=== PATIENT | female | born 1975 | race American Indian/Alaskan Native ===

== ENCOUNTER → 2025-01-30 | Outpatient (CLI) | payer BC, SELFPAY ==
[2025-01-30 09:42] LABS: Glucose Estimated Average 200 mg/dL (80-131); Hemoglobin A1C 8.6 % Hgb (4.8-6.0)
[2025-01-30 10:08] LABS: Alanine Aminotransferase 39 U/L (10-49); Albumin/Globulin Ratio 1.4 (1.2-2.2); Alkaline Phosphatase 107 U/L (46-116); Anion Gap 8 (7-16); Aspartate Amino Transferase 21 U/L (0-34); BUN/Creatinine Ratio 11 Ratio (12-20); Bilirubin,Total 0.7 mg/dL (0.3-1.2); Blood Urea Nitrogen 10 mg/dL (9-23); Calcium 9.7 mg/dL (8.3-10.6); Calcium (Corrected) 9.7 mg/dL (8.5-10.1); Carbon Dioxide 28.1 mMol/L (20.0-31.0); Chloride 104 mMol/L (98-107); Creatinine (Component) 0.9 mg/dL (0.6-1.3); Globulin 2.9 gm/dL (2.3-3.5); Glucose 191 mg/dL (74-106); Osmolality,Calculated 283 (275-295); Potassium 4.9 mMol/L (3.4-5.1); Sodium 140 mMol/L (136-145); Total Protein 6.9 gm/dL (5.7-8.2); eGFR > 60 See Note
== END | disposition home or self-care (01) ==
LOC: COPL 08:15
PROVIDERS: PCP Family Medicine; Referring Provider Physician Assistant; Visit Provider Physician Assistant
DX: E11.9 Type 2 diabetes mellitus without complications (principal)
CPT/HCPCS: 36415; 80053; 83036

== ENCOUNTER → 2025-04-22 | Outpatient (CLI) | payer BC, SELFPAY ==
--- NOTE | 2025-04-22 13:19 | XR_ITS ---
Examination: Foot bilateral, 6 views Technique: AP, oblique, lateral views each foot total 6 views Date and time of exam: April 22, 2025 1331 hours INDICATIONS: Bilateral foot pain beginning 6 months ago with heel pain FINDINGS: Moderate osteopenia Bilateral mild narrowing first metatarsophalangeal joints Bilateral 4 mm posterior bony calcaneal spurs No fractures No cortical bone destruction IMPRESSION: Bilateral 4 mm posterior bony calcaneal spurs Bilateral mild narrowing first metatarsophalangeal joints
[2025-04-22 14:18] LABS: Basophils # (Auto) 0.1 Thou/mm3 (0.0-0.2); Basophils % (Auto) 1 % (0-2.5); Eosinophils # (Auto) 0.5 Thou/mm3 (0.0-0.5); Eosinophils % (Auto) 6 % (0-10); Hematocrit 46.3 % (36.0-46.0); Hemoglobin 15.8 g/dL (12.0-16.0); Immature Granulocytes % (Auto) 0 % (0-0); Immature Granulocytes Auto 0.02 Thou/mm3 (0.00-0.00); Lymphocytes % (Auto) 35 % (10-50); Mean Corpuscular HGB Conc 34.1 g/dl (31.0-37.0); Mean Corpuscular Hemoglobin 31.7 pg (25.0-35.0); Mean Corpuscular Volume 93 fL (80-100); Monocytes # (Auto) 0.6 Thou/mm3 (0.0-0.8); Monocytes % (Auto) 7 % (0-12); Neutrophils # (Auto) 4.4 Thou/mm3 (1.8-7.7); Neutrophils % (Auto) 51 % (37-80); Nucleated Red Blood Cell % 0 /100 WBC (0); Platelet Count 387 Thou/mm3 (140-440); RDW Standard Deviation 42.3 fL (36.4-46.3); Red Blood Count 4.99 Miln/mm3 (4.00-5.20); White Blood Count 8.6 Thou/mm3 (3.6-11.0)
[2025-04-22 14:42] LABS: Vitamin B12 835 pg/mL (211-911); Vitamin D 25 Hydroxy Total 60.2 ng/mL (7.3-40.2)
[2025-04-22 14:44] LABS: Alanine Aminotransferase 49 U/L (10-49); Albumin, Serum 4.4 gm/dL (3.5-5.0); Albumin/Globulin Ratio 1.5 (1.2-2.2); Alkaline Phosphatase 100 U/L (46-116); Anion Gap 13 (7-16); Aspartate Amino Transferase 34 U/L (0-34); BUN/Creatinine Ratio 8 Ratio (12-20); Blood Urea Nitrogen 7 mg/dL (9-23); Calcium 9.2 mg/dL (8.3-10.6); Calcium (Corrected) 9.2 mg/dL (8.5-10.1); Carbon Dioxide 26.5 mMol/L (20.0-31.0); Cardiac Risk Estimate 2.9 RATIO (3.7-5.6); Chloride 106 mMol/L (98-107); Cholesterol 112 mg/dL (132-200); Creatinine (Component) 0.9 mg/dL (0.6-1.3); Globulin 2.9 gm/dL (2.3-3.5); Glucose 113 mg/dL (74-106); HDL Cholesterol 38 mg/dL (40-60); LDL Cholesterol,Calculated 53 mg/dL (0-130); Osmolality,Calculated 287 (275-295); Sodium 145 mMol/L (136-145); Thyroid Stimulating Hormone 0.73 uIU/mL (0.55-4.78); Total Protein 7.3 gm/dL (5.7-8.2); Triglycerides 105 mg/dL (30-150); eGFR > 60 See Note
[2025-04-22 14:45] LABS: Glucose Estimated Average 146 mg/dL (80-131); Hemoglobin A1C 6.7 % Hgb (4.8-6.0)
[2025-04-22 14:51] LABS: Collection Type, Urine Clean Catch
[2025-04-22 15:14] LABS: Bacteria,Urine Rare; Bilirubin,Urine Negative (Negative); Blood,Urine Negative (Negative); Clarity,Urine Clear (Clear/Hazy); Color,Urine Yellow (Lt Yel-Yel); Culture Indicated,Urine Not Indicated; Glucose, Urine Negative (Negative); Ketones,Urine Negative (Negative); Leukocyte Esterase,Urine Positive (Negative); Nitrite,Urine Negative (Negative); Protein,Urine Negative (Neg - Trace); RBC,Urine 3 /hpf (0-3); Specific Gravity,Urine 1.018 (1.001-1.035); Squamous Epithelial Cell,Urine 2 /hpf (0-5); Urobilinogen,Urine Negative mg/dL (0.0-1.0); WBC,Urine 10 /hpf (0-5)
[2025-04-22 15:26] LABS: Creatinine MALB Rnd Ur 164 mg/dL (30-125); Microalbumin Creat Ratio 5 mg/gCrea (<30); Microalbumin, Random Urine 8 mg/L (0-300)
== END | disposition home or self-care (01) ==
LOC: COPL 13:12
PROVIDERS: PCP Family Medicine; Referring Provider Physician Assistant; Visit Provider Physician Assistant
DX: Z00.00 Encounter for general adult medical examination without abnormal findings (principal); E11.65 Type 2 diabetes mellitus with hyperglycemia; E55.9 Vitamin D deficiency, unspecified; M79.673 Pain in unspecified foot
CPT/HCPCS: 36415; 73630; 80053; 80061; 81001; 82043; 82306; 82570; 82607; 83036; 84443; 85025

== ENCOUNTER → 2025-05-12 | Outpatient (CLI) | payer BC, SELFPAY ==
--- NOTE | 2025-05-12 | XR_ITS ---
Examination: Lumbar spine, 5 views Technique: Lumbar spine AP, lateral, coned lateral lower lumbar spine, bilateral obliques 5 views Exam date and time: May 12, 2025 1156 hours INDICATIONS: Back pain 7 years. FINDINGS: Lumbar dextroscoliosis 10 degrees Mild diffuse facet arthropathy. No lumbar fracture Moderate disc narrowing L4-L5, L5-S1 Calcified disc bulge L4-L5 8 mm No spondylolisthesis IMPRESSION: Moderate degenerative disc disease L4-L5, L5-S1 L4-L5 8 mm calcified bulging disc
--- NOTE | 2025-05-12 11:30 | XR_ITS ---
Examination: Screening digital mammography, bilateral Computer aided detection 3-D breast Tomosynthesis, bilateral Date and time of exam: May 12, 2025 1143 hours Compared to mammograms dating to July 18, 2011 Indication: Screening Technique: Nonmagnified MLO, CC views of the breasts to been obtained, reconstructed from 3-D Tomosynthesis images. R2 computer aided detection program utilized for evaluation of suspicious masses and/or abnormal calcifications. 3-D Tomosynthesis images obtained. Findings: Scattered areas of fibroglandular density. 4 mm focal asymmetry outer left breast 7.8 cm from the nipple Impression: BI-RADS Category 0: Incomplete: Need additional imaging evaluation 4 mm focal asymmetry outer left breast 7.8 cm from the nipple, recommend follow-up spot tomographic views upper outer quadrant left breast left breast sonography to complete the workup.
== END | disposition home or self-care (01) ==
LOC: CDIM 11:27
PROVIDERS: Referring Provider Physician Assistant; Visit Provider Physician Assistant
DX: Z12.31 Encounter for screening mammogram for malignant neoplasm of breast (principal); M51.360 Other intervertebral disc degeneration, lumbar region with discogenic back pain only; R92.323 Mammographic fibroglandular density, bilateral breasts; N64.89 Other specified disorders of breast
CPT/HCPCS: 72110; 77063; 77067

== ENCOUNTER 2025-07-16 17:28 | Emergency (ER) | payer BC, SELFPAY ==
[2025-07-16 17:42] VITALS: BP 131/72; PULSE 83; RESP 18; TEMP 36.7; O2SAT 98; BMI 30.3
--- NOTE | 2025-07-16 17:50 | XR_ITS ---
Examination: Foot, left, 3 views Technique: AP, oblique, lateral views foot, 3 views Date and time of exam: July 08 06/25/2025, 1758 hours INDICATIONS: Injury to the foot today with fourth digit pain. FINDINGS: Spiral fracture involving proximal and midportion proximal phalanx fourth digit without significant displacement No foreign body IMPRESSION: Acute fracture proximal phalanx fourth digit
--- NOTE | 2025-07-16 17:51 | XR_ITS ---
Examination: Toes, left foot fourth digit 3 views Technique: Toes AP oblique lateral 3 views fourth digit Date and time of exam: July 16, 2025, 1758 hours INDICATIONS: Injury to the foot today with fourth digit pain. FINDINGS: Oblique fracture involving the mid and proximal portion proximal phalanx fourth digit No major offset at the fracture site IMPRESSION: Acute fracture proximal phalanx fourth digit
--- NOTE | 2025-07-16 17:51 | PD.EDANKLE ---
Lower Extremity Injury RME/HPI General Chief Complaint: Ankle/Foot Injury Stated Complaint: Left 4th toe injury today Time Seen by Provider: 07/16/25 17:45 Arrival date/time: 07/16/25 17:28 RME / HPI RME / HPI Narrative: 50-year-old female patient came in for evaluation regarding left fourth toe injury. Patient accidentally kicked her daughter's shoe resulting into a deformity to the left fourth toe with pain and swelling incident happened few minutes prior to ER visit. Patient took 1600 mg of ibuprofen prior to ER visit. Denies any other injury patient is ambulatory. Related Data Home Medications ?Medication ?Instructions ?Recorded ?Confirmed apixaban 2.5 mg tablet (Eliquis) 2.5 mg PO BID 05/28/23 08/13/23 cholecalciferol (vitamin D3) 25 25 mcg PO QDAY 05/28/23 08/13/23 mcg (1,000 unit) tablet (Vitamin D3) famotidine 20 mg tablet (Pepcid) 20 mg PO BID 05/28/23 08/13/23 omeprazole 20 mg capsule,delayed 20 mg PO DAILY 05/28/23 08/13/23 release escitalopram oxalate 20 mg tablet 20 mg PO DAILY 08/09/23 08/13/23 ferrous sulfate 325 mg (65 mg 325 mg PO DAILY 08/09/23 08/13/23 iron) tablet lisinopril 2.5 mg tablet 2.5 mg PO DAILY 08/09/23 08/13/23 metformin 500 mg tablet 1,000 mg PO BID 08/09/23 08/13/23 Previous Rx's ?Medication ?Instructions ?Recorded flecainide 100 mg tablet 100 mg PO Q12H #14 tabs 01/12/24 metoprolol succinate 50 mg 50 mg PO QDAY #7 tabs 01/12/24 tablet,extended release 24 hr Allergies Allergy/AdvReac Type Severity Reaction Status Date / Time latex Allergy Severe ITCHY, Verified 07/16/25 17:33 REDDENED Review of Systems Review of Systems Narrative Review of Systems: Review of system reviewed and within normal limits except mentioned in HPI ED Exam Narrative Physical exam: VITAL SIGNS: Reviewed. GENERAL APPEARANCE: Alert and interactive, follows commands, no acute distress, HEAD AND FACE: Non-traumatic. ENT: PERRL, pink conjunctivitis, eyelid no trauma, Mucous membrane moist. NECK: Supple, nontender, no nuchal rigidity. CHEST: No tenderness, no crepitus, no paradoxical movement, no retractions. LUNGS: Clear, well ventilated, symmetric, no rales, no wheezing, no ronchi, no stridor, good breath sounds bilaterally. HEART: Regular rate, regular rhythm, no murmur, no gallops. ABDOMEN: Soft, positive bowel sounds, nondistended, no guarding, nontender, no rebound, no masses, RECTAL: Deferred. GENITAL: Deferred. NEUROLOGICAL: Gross motor function intact sensory function intact, Appropriate for age. MUSCULOSKELETAL: low back nontender, full range of motion. EXTREMITIES: + Left fourth toe swelling, tenderness, with limitation range of motion. SKIN: Color pink, dry, no rash, no lacerations, no abrasions, no contusions. LYMPHATICS: Deferred. Course Quality Measures none Orders Category Date Time Status XR foot comp LT min 3V Stat Exams 07/16/25 17:50 Completed XR toe LT min 2V Stat Exams 07/16/25 17:51 Completed Vital Signs Vital signs: Vital Signs Temperature 98.1 F 07/16/25 17:42 Pulse Rate 83 07/16/25 17:42 Respiratory Rate 18 07/16/25 17:42 Blood Pressure 131/72 H 07/16/25 17:42 Pulse Oximetry (%) 98 07/16/25 17:42 Oxygen Delivery Method Room Air 07/16/25 17:42 Extremity Injury, Lower MDM Narrative MDM Narrative:: 50-year-old female patient came in for evaluation regarding left fourth toe injury. Patient accidentally kicked her daughter's shoe resulting into a deformity to the left fourth toe with pain and swelling incident happened few minutes prior to ER visit. Patient took 1600 mg of ibuprofen prior to ER visit. Denies any other injury patient is ambulatory. X-ray of the foot showed proximal phalanx fracture of the fourth 2 on the left. Deena taping applied, patient was supplied with Ortho shoe. She is stable for discharge home. Patient data External records reviewed:: None Clinical information provided by:: patient Social determinants that could affect healthcare access:: none Patient has the following chronic illnesses:: None How is presenting disease/condition affected by chronic disease/condition?: no chronic disease Evaluation data The following diagnostics were reviewed and interpreted by me:: radiology exam(s) Lab and/or radiology exams considered but not ordered:: None Interpretation Summary: See results MDM Medications / Prescriptions Medications or Prescriptions considered but not ordered:: None Medication administrations:: None Consultations Consultation(s) initiated? (list below): No Diagnosis Extremity Injury, Lower Differential Diagnosis: ankle sprain and strain and fracture of toe Most likely diagnosis given after review of the tests above:: Fracture toe Admission Indicated Admission indicated?: not indicated Admission Request Was there a request for admission?: No Disposition Plan Disposition Plan: Discharge Discharge Attestation Discharge Attestation: The patient was given an opportunity to ask questions and understood the discharge instructions. Discharge instructions specifically effects, indications for sooner follow up or return to the emergency department, and the expected course of current diagnosis. Patient condition: Stable Discharge Plan Plan Patient Disposition: HOME (Self Care) Discharge Disposition comment: stable Prescriptions/Referrals Prescriptions/Med Rec: No Action famotidine [Pepcid] 20 mg Tablet 20 mg PO BID omeprazole 20 mg Capsule,Delayed Release(Dr/Ec) 20 mg PO DAILY cholecalciferol (vitamin D3) [Vitamin D3] 25 mcg (1,000 unit) Tablet 25 mcg PO QDAY Eliquis 2.5 mg tablet 2.5 mg PO BID Patient Comments: TAKE 1 TABLET BY MOUTH TWICE DAILY flecainide 100 mg tablet 100 mg PO Q12H Qty: 14 0RF metoprolol succinate 50 mg tablet extended release 24 hr 50 mg PO QDAY Qty: 7 0RF lisinopril 2.5 mg tablet 2.5 mg PO DAILY Patient Comments: TAKE 1 TABLET BY MOUTH EVERY DAY escitalopram oxalate 20 mg tablet 20 mg PO DAILY metformin 500 mg tablet 1,000 mg PO BID ferrous sulfate 325 mg (65 mg iron) tablet 325 mg PO DAILY Referrals: Alex Garcia MD [Primary Care Provider] - In 1 week Problem List Clinical Impression: Closed fracture of toe Patient/Caregiver Discharge Instructions Discharge Activity: activity as tolerated Education Materials: Fx Finger Toe Additional Instructions: Thank you for the opportunity for serving you today. You are stable for discharged . You are advised to: Follow-up with your PCP in 1 to 2 days and asked for referral to [facility] Return to ED for worsening of symptoms Increase oral fluids Take [id number] Tylenol Motrin as needed for pain Continue deena taping for the next 4 weeks and continue using your Ortho shoe Print Language: German Stand Alone Forms: Rajani Award Info., Patient Portal Info Letter PA/FURNACE COMBINATION ANALYST Supervising Physician PA/FURNACE COMBINATION ANALYST Supervising Physician: MD Fidelina
== END 2025-07-16 21:01 | disposition home or self-care (01) ==
PROVIDERS: Emergency Provider Emergency Medicine; PCP Family Medicine
DX: S92.512A Displaced fracture of proximal phalanx of left lesser toe(s), initial encounter for closed fracture (principal); W22.8XXA Striking against or struck by other objects, initial encounter
CPT/HCPCS: 73630; 73660; 99283

== ENCOUNTER → 2025-07-30 | Outpatient (CLI) | payer BC, SELFPAY ==
--- NOTE | 2025-07-30 10:30 | XR_ITS ---
Examination: MRI lumbar spine without contrast Date and time of exam: July 30, 2025 1111 hours INDICATIONS: Lower back pain beginning 29 years ago, worse the last 3 years Technique: Multiple MRI axial and sagittal sections lumbar spine. Sagittal T2-weighted images, TR 3500, TE 118 T1 weighted transverse sections, TR 688 T8.5, T2-weighted sagittal sections T1 weighted sagittal sections TR 621, TE 30 T2 axial sections, TR 4, 190, TE 84. Findings: Transitional S1 vertebral body No lumbar fracture Disc desiccation of the lower 3 lumbar levels Adequate marrow signal lumbar vertebral bodies No spondylolisthesis L5-S1 3 mm central lumbar disc bulge L4 L5 6 mm right paracentral disc bulge displacing the right L5 nerve root L3-L4 4 mm right paracentral disc bulge More cephalad levels unremarkable IMPRESSION: L5-S1 3 mm central lumbar disc bulge L4-L5 6 mm right paracentral disc bulge displacing the right L5 nerve root L3-L4 4 mm right upper central disc bulge
== END | disposition home or self-care (01) ==
PROVIDERS: PCP Physician Assistant; Referring Provider Physician Assistant; Visit Provider Physician Assistant
DX: M51.370 Other intervertebral disc degeneration, lumbosacral region with discogenic back pain only (principal); M51.360 Other intervertebral disc degeneration, lumbar region with discogenic back pain only
CPT/HCPCS: 72148

== ENCOUNTER → 2025-08-19 | Outpatient (CLI) | payer BC, SELFPAY ==
--- NOTE | 2025-08-19 | XR_ITS ---
Examination: Foot, left, 3 views Technique: AP, oblique, lateral views foot, 3 views Date and time of exam: August 19, 2025, 0719 hrs., Comparison July 16, 2025 Indications: Injury to the foot with acute fracture proximal phalanx fourth digit July 16, 2025 Findings: Stable alignment fracture proximal phalanx fourth digit No significant bony callus formation Impression: Stable alignment fracture proximal phalanx fourth digit
[2025-08-19 08:47] LABS: Glucose Estimated Average 128 mg/dL (80-131); Hemoglobin A1C 6.1 % Hgb (4.8-6.0)
[2025-08-19 08:56] LABS: Alanine Aminotransferase 34 U/L (10-49); Albumin, Serum 4.4 gm/dL (3.5-5.0); Albumin/Globulin Ratio 1.6 (1.2-2.2); Alkaline Phosphatase 89 U/L (46-116); Anion Gap 8 (7-16); Aspartate Amino Transferase 22 U/L (0-34); BUN/Creatinine Ratio 10 Ratio (12-20); Bilirubin,Total 1.0 mg/dL (0.3-1.2); Blood Urea Nitrogen 11 mg/dL (9-23); Calcium 10.4 mg/dL (8.3-10.6); Calcium (Corrected) 10.4 mg/dL (8.5-10.1); Carbon Dioxide 28.7 mMol/L (20.0-31.0); Chloride 108 mMol/L (98-107); Creatinine (Component) 1.1 mg/dL (0.6-1.3); Free T4 (Free Thyroxine) 1.38 ng/dL (0.89-1.76); Globulin 2.7 gm/dL (2.3-3.5); Glucose 108 mg/dL (74-106); Osmolality,Calculated 289 (275-295); Potassium 4.4 mMol/L (3.4-5.1); Sodium 145 mMol/L (136-145); Thyroid Stimulating Hormone 1.25 uIU/mL (0.55-4.78); Total Protein 7.1 gm/dL (5.7-8.2); eGFR > 60 See Note
[2025-08-24 07:18] LABS: T3,Total* 127 ng/dL (76-181)
== END | disposition home or self-care (01) ==
LOC: CDIM 06:52
PROVIDERS: PCP Family Medicine; Referring Provider Physician Assistant; Visit Provider Podiatrist Foot & Ankle Surgery
DX: S92.512A Displaced fracture of proximal phalanx of left lesser toe(s), initial encounter for closed fracture (principal); X58.XXXA Exposure to other specified factors, initial encounter; E11.9 Type 2 diabetes mellitus without complications; R53.83 Other fatigue
CPT/HCPCS: 36415; 73630; 80053; 83036; 84439; 84443; 84480

== ENCOUNTER → 2025-08-26 | Outpatient (CLI) | payer BC, SELFPAY ==
--- NOTE | 2025-08-26 09:00 | XR_ITS ---
Examination: Breast ultrasound, unilateral, left complete Date and time of exam: August 26, 2025, 0914 hours INDICATIONS: Left breast lumpectomy 22 years ago, mammogram 01/12/2025 4 mm focal asymmetry outer left breast 7.8 cm from the nipple Technique: Real-time abbasi scale ultrasonographic imaging performed left breast including all 4 quadrants as well as nipple retroareolar and axillary region. Findings: No cystic or solid mass IMPRESSION: BI-RADS Category 1: Negative study
--- NOTE | 2025-08-26 09:30 | XR_ITS ---
Examination: Diagnostic digital mammography, unilateral, left Computer aided detection 3-D breast Tomosynthesis, unilateral Date and time of exam: August 26, 2025, 0923 hours INDICATIONS: Mammogram May 12, 2025 4 mm focal asymmetry outer left breast 7.8 cm from the nipple Technique: Nonmagnified MLO, CC views of the left breast have been obtained, reconstructed from 3-D Tomosynthesis images. R2 computer aided detection program utilized for evaluation of suspicious masses and/or abnormal calcifications. 3-D Tomosynthesis images obtained. Findings: Scattered areas of fibroglandular density. No suspicious masses noted on the spot compression views Impression: BI-RADS category 2: Benign findings Return to yearly follow-up mammography
== END | disposition home or self-care (01) ==
PROVIDERS: PCP Physician Assistant; Referring Provider Physician Assistant; Visit Provider Physician Assistant
DX: R92.322 Mammographic fibroglandular density, left breast (principal)
CPT/HCPCS: 76641; 77061; 77065; G0279

== ENCOUNTER → 2025-09-28 | Outpatient (CLI) | payer BC, SELFPAY ==
--- NOTE | 2025-09-28 | XR_ITS ---
Examination: Foot, left, 3 views Technique: AP, oblique, lateral views foot, 3 views Date and time of exam: September 28, 2025, 11:25 a.m. INDICATIONS: Fracture proximal phalanx fourth digit August 19, 2025, July 16, 2025 FINDINGS: Early healing fracture proximal phalanx fourth digit Satisfactory alignment Moderate osteopenia IMPRESSION: Early healing fracture proximal phalanx fourth digit with satisfactory alignment
== END | disposition home or self-care (01) ==
LOC: CDIM 10:42
PROVIDERS: PCP Physician Assistant; Referring Provider Podiatrist Foot & Ankle Surgery; Visit Provider Podiatrist Foot & Ankle Surgery
DX: S92.512D Displaced fracture of proximal phalanx of left lesser toe(s), subsequent encounter for fracture with routine healing (principal); X58.XXXD Exposure to other specified factors, subsequent encounter
CPT/HCPCS: 73630

== ENCOUNTER → 2025-10-26 | Outpatient (CLI) | payer BC, SELFPAY ==
--- NOTE | 2025-10-26 08:20 | XR_ITS ---
Examination: Foot, left, 3 views Technique: AP, oblique, lateral views foot, 3 views Date and time of exam: October,, 0829 hours INDICATIONS: Acute fracture proximal phalanx fourth digit August 19, 2025 FINDINGS: Partial healing fracture proximal phalanx fourth digit with stable and satisfactory alignment IMPRESSION: Partial healing fracture proximal phalanx fourth digit with stable and satisfactory alignment
== END | disposition home or self-care (01) ==
LOC: CDIM 08:13
PROVIDERS: PCP Family Medicine; Referring Provider Podiatrist Foot & Ankle Surgery; Visit Provider Podiatrist Foot & Ankle Surgery
DX: S92.512A Displaced fracture of proximal phalanx of left lesser toe(s), initial encounter for closed fracture (principal); X58.XXXA Exposure to other specified factors, initial encounter
CPT/HCPCS: 73630